=== PATIENT | male | born 1955 | race Caucasian/White ===

== ENCOUNTER 2017-05-19 12:53 | Emergency (ER) | payer BC ==
[2017-05-19 13:00] VITALS: BMI 23.3
[2017-05-19] MEDS ORDERED: ASPIRIN 325 MG TABLET PO ONE (13:48)
--- NOTE | 2017-05-19 13:48 | PDOC ---
History of Present Illness - General Chief Complaint: Chest Pain Stated Complaint: CHEST PAIN (PCP SENT)/hx of p.e Time Seen by Provider: 05/19/17 13:29 History Source: Patient - History of Present Illness Presenting Symptoms: Chest Pain Timing/Duration: reports: intermittent Severity/Quality: reports: pressure Location: reports: substernal Chest Pain Radiation: reports: no radiation Modifying Factors: worse with: breathing, lying down Past History - Past Medical History Allergies/Adverse Reactions: Allergies Allergy/AdvReac Type Severity Reaction Status Date / Time No Known Allergies Allergy Verified 05/19/17 12:55 Home Medications: Ambulatory Orders Brimonidine Tartrate/Timolol [Combigan 0.2%-0.5% Eye Drops] 5 ml OS BID Cetirizine HCl [Zyrtec] 10 mg PO DAILY 02/16/14 Cyclosporine [Restasis] 1 each OS BID 02/16/14 Esomeprazole Mag Trihydrate [Nexium] 40 mg PO DAILY 02/16/14 Levothyroxine [Synthroid -] 150 mcg PO DAILY 02/16/14 Mometasone Furoate [Nasonex] 1 - 2 inh NS DAILY 02/16/14 Asthma: No (P.E) Cancer: Yes (NON HODGKINS LYMPHOMA) - Psycho/Social/Smoking Cessation Hx Anxiety: No Suicidal Ideation: No Smoking History: Never smoked Have you smoked in the past 12 months: No Number of Cigarettes Smoked Daily: 0 Information on smoking cessation initiated: No Hx Alcohol Use: No Drug/Substance Use Hx: No Substance Use Type: None Review of Systems - Review of Systems Constitutional: No: Chills, Fever Respiratory: No: Cough, Shortness of Breath Cardiac (ROS): Yes: Chest Pain. No: Lightheadedness, Palpitations *Physical Exam - Vital Signs Last Vital Signs Temp Pulse Resp BP Pulse Ox 97.8 F 78 16 111/67 97 05/19/17 12:56 05/19/17 13:15 05/19/17 13:15 05/19/17 13:15 05/19/17 13:15 - Physical Exam General Appearance: Yes: Appropriately Dressed. No: Apparent Distress HEENT: positive: Normal Voice Neck: positive: Supple Respiratory/Chest: positive: Lungs Clear, Normal Breath Sounds. negative: Respiratory Distress Cardiovascular: positive: Regular Rate, S1, S2 Gastrointestinal/Abdominal: positive: Soft. negative: Tender Extremity: positive: Swelling (diffusely to LLE w/ contusion to lateral L leg, pedal pulses intact) Integumentary: positive: Dry, Warm Neurologic: positive: Fully Oriented, Alert, Normal Mood/Affect Heart Score/ECG Review - History History: Slightly suspicious - Electrocardiogram EKG: Normal - Age Age: 45-65 - Risk Factors Based on the list above the patient has:: No risk factors known - Troponin Troponin: </= normal limit - Score Heart Score - Total: 1 - ECG Intrepretation Comment:: 05/19/17 14:56 Twelve-lead EKG was performed and reviewed by me. There is normal sinus rhythm with a normal rate. The axis is normal. The intervals are normal. There are no ST or T wave abnormalities. Impression: Normal twelve-lead EKG 05/19/17 16:04 ED Treatment Course - LABORATORY CBC & Chemistry Diagram: 05/19/17 13:40 05/19/17 13:40 - ADDITIONAL ORDERS Additional order review: Laboratory Results 05/19/17 05/19/17 13:40 13:40 Sodium 141 Potassium 4.1 Chloride 108 H Carbon Dioxide 23 Anion Gap 10 BUN 23 H D Creatinine 1.2 Creat Clearance w eGFR > 60 Random Glucose 98 Calcium 8.3 L Total Bilirubin 0.7 D AST 17 ALT 24 D Alkaline Phosphatase 71 D Creatine Kinase 175 Creatine Kinase Index 2.4 CK-MB (CK-2) 2.832 CK-MB (CK-2) Rel Index Cancelled Troponin I < 0.02 Total Protein 7.0 Albumin 3.7 D 05/19/17 13:40 RBC 4.12 MCV 93.6 MCHC 34.1 RDW 13.4 D MPV 7.1 L Neutrophils % 56.6 Lymphocytes % 32.6 Monocytes % 8.3 Eosinophils % 1.8 Basophils % 0.7 - RADIOLOGY Radiology Studies Ordered: Category Date Time Status CHEST CTA [CT] Stat CT Scan 05/19/17 14:50 Completed CHEST X-RAY PORTABLE* [RAD] Stat Radiology 05/19/17 13:34 Completed DUPLEX VASCUL US-1 LEG [US] Stat Ultrasound 05/19/17 13:35 Completed - Medications Given in the ED: ED Medications Discontinued Medications Generic Name Dose Route Start Last Admin Trade Name Freq PRN Reason Stop Dose Admin Aspirin 325 mg 05/19/17 13:48 05/19/17 13:53 Asa - PO 05/19/17 13:49 325 mg ONCE ONE Administration Medical Decision Making - Medical Decision Making 05/19/17 13:43 61-year-old male history of hypothyroid, GERD, status post chemotherapy for Hodgkin's lymphoma over 20 years ago, PE after L knee surgery, not currently on AC, presents with chest pain. Patient reports pressure-like, non-radiating substernal chest pain that started yesterday, worse when supine and w/ deep inspiration, better when sitting up. Denies shortness of breath otherwise and no diaphoresis, nausea, vomiting or palpitations. Patient reports that he recently traveled from [place] and that while he was there, he tripped and fell and since then has had pain and swelling to LLE. No recent cardiac w/u. No recent uri See exam Pleuritic CP R/o ACS vs PE (multiple RF) vs pericarditis, less likely dissection -EKG -CXR -US r/o DVT -?CTA -labs 05/19/17 13:47 05/19/17 16:03 Labx/US/CTA all normal. Pt asymptomatic at this time. Given duration of CP, will only need 1 set cardiac enzyme. Will discuss dispo w/ pt's cards, Dr Smart 05/19/17 16:39 Case d/w Dr Lunsford (covering Scar Smart), agrees with discharging pt to f/u with his order clerk 05/19/17 16:49 *DC/Admit/Observation/Transfer Diagnosis at time of Disposition: Chest pain Qualifiers: Chest pain type: unspecified Qualified Code(s): R07.9 - Chest pain, unspecified - Discharge Dispostion Disposition: HOME - Referrals Referrals: James Kearney MD [Primary Care Provider] - - Patient Instructions Printed Discharge Instructions: DI for Atypical Chest Pain Additional Instructions: Please follow up with your order clerk in 1 week Return to ED for worsening of symptoms
[2017-05-19 13:51] LABS: BASOPHIL 0.7 % (0-2.0); EOSINOPHIL 1.8 % (0-4.5); MCH 31.9 pg (25.7-33.7); MCHC 34.1 g/dl (32.0-35.9); MEAN CELL VOLUME 93.6 fl (80-96); MEAN PLT VOLUME 7.1 fl (7.5-11.1); NEUTROPHILS 56.6 % (42.8-82.8); PLATELET COUNT 193 K/MM3 (134-434); RDW 13.4 % (11.9-15.9); WHITE BLOOD COUNT 6.9 K/mm3 (4.0-10.0)
[2017-05-19] MEDS ORDERED: ASPIRIN 325 MG TABLET ONE (13:51)
[2017-05-19 14:15] LABS: ALBUMIN 3.7 g/dl (3.4-5.0); ANION GAP 10 (8-16); CALCIUM 8.3 mg/dL (8.5-10.1); CO2 23 mmol/L (21-32); GLUCOSE,RANDOM 98 mg/dL (74-106)
[2017-05-19 14:18] LABS: CREATININE 1.2 mg/dL (0.7-1.3); SGOT/AST 17 U/L (15-37); SGPT/ALT 24 U/L (12-78)
[2017-05-19 14:19] LABS: BILIRUBIN,TOTAL 0.7 mg/dL (0.2-1.0)
[2017-05-19 14:22] LABS: ALK PHOS 71 U/L (45-117); TROPONIN I < 0.02 ng/ml (0.00-0.05)
[2017-05-19 16:54] VITALS: BP 116/69; PULSE 83; TEMP 97.7
[2017-05-19 18:01] LABS: URINE APPEARANCE CLEAR; URINE BILIRUBIN NEGATIVE (NEGATIVE); URINE BLOOD NEGATIVE (NEGATIVE); URINE COLOR YELLOW; URINE GLUCOSE (UA) NEGATIVE (NEGATIVE); URINE KETONE NEGATIVE (NEGATIVE); URINE LEUK ESTERASE NEGATIVE (NEGATIVE); URINE NITRITE NEGATIVE (NEGATIVE); URINE PROTEIN NEGATIVE (NEGATIVE); URINE UROBILINOGEN NEGATIVE E.U./dl (0.2-1.0)
--- NOTE | 2017-05-20 14:48 | EKG ---
Test Reason : Blood Pressure : / mmHG Vent. Rate : 079 BPM Atrial Rate : 079 BPM P-R Int : 194 ms QRS Dur : 096 ms QT Int : 390 ms P-R-T Axes : -07 -12 029 degrees QTc Int : 447 ms BASELINE ARTIFACTS NORMAL SINUS RHYTHM EARLY TRANSITIONIN V2 NORMAL ECG WHEN COMPARED WITH ECG OF 21-DEC-2008 16:49, VENT. RATE HAS INCREASED BY 28 BPM RSR 'IN V1 CORELATE CLINICALLY Confirmed by MARY GARNER MD ([id number]) on 05/20/2017 2:48:13 PM Referred By: Confirmed By:MARY GARNER MD
== END 2017-05-19 17:10 | disposition home or self-care (01) ==
LOC: JER 12:53
DX: R07.89 Other chest pain (principal); M79.605 Pain in left leg; W01.0XXA Fall on same level from slipping, tripping and stumbling without subsequent striking against object, initial encounter; Y93.89 Activity, other specified; Y92.89 Other specified places as the place of occurrence of the external cause; E03.9 Hypothyroidism, unspecified; K21.9 Gastro-esophageal reflux disease without esophagitis; Z85.72 Personal history of non-Hodgkin lymphomas
CPT/HCPCS: 36415; 71010-TC; 71275-TC; 80053; 81003; 82550; 82553; 84484; 85025; 93005; 93010; 93971-TC; 99285-25

== ENCOUNTER 2018-10-11 14:56 | Emergency (ER) | payer BC ==
[2018-10-11 15:22] VITALS: BP 97/55; PULSE 75; TEMP 98.6; BMI 24.5
--- NOTE | 2018-10-11 15:45 | PDOC ---
History of Present Illness - General Chief Complaint: Respiratory Stated Complaint: SENT BY PCP FOR CT Time Seen by Provider: 10/11/18 15:20 - History of Present Illness Initial Comments: 10/11/18 15:38 The patient is a 62 year old male with a past medical history of Hodgkins lymphoma s/p stem cell txplant (in remission for 18 years) here today for evaluation of cough. The patient reports that his cough has been going on for 6 weeks. He endorses clear sputum. Denies hemoptysis. Denies F/C. Denies CP/SOB. He also notes unintentional weight loss of 12 lbs since May. Denies nausea, diarrhea, abdominal pain. Denies lower extremity edema. Denies urinary symptoms Pt had outpt CXR done 1 month ago that was normal. Pt was prescribed a course of augmentin and prednisone, which he completed with no improvement in symptoms. Allergies: NKA Social history: denies tobacco use PCP: James Kearney Past History - Past Medical History Allergies/Adverse Reactions: Allergies Allergy/AdvReac Type Severity Reaction Status Date / Time No Known Allergies Allergy Verified 10/11/18 15:15 Home Medications: Ambulatory Orders Esomeprazole Mag Trihydrate [Nexium] 40 mg PO DAILY 02/16/14 Levothyroxine [Synthroid -] 150 mcg PO DAILY 02/16/14 Prednisolone Acetate/Pf [Prednisolone Acet 1% Eye Drop] 5 ml OP ASDIR 10/11/18 Asthma: No (P.E) Cancer: Yes (NON HODGKINS LYMPHOMA) - Suicide/Smoking/Psychosocial Hx Smoking History: Never smoked Have you smoked in the past 12 months: No Number of Cigarettes Smoked Daily: 0 Hx Alcohol Use: No Drug/Substance Use Hx: No Substance Use Type: None Review of Systems - Review of Systems Comments:: 10/11/18 15:45 GENERAL/CONSTITUTIONAL: No fever or chills. No weakness. HEAD, EYES, EARS, NOSE AND THROAT: No change in vision. No ear pain or discharge. No sore throat. CARDIOVASCULAR: No chest pain, no shortness of breath, no loss of consciousness RESPIRATORY: + cough, no wheezing, or hemoptysis. GASTROINTESTINAL: No nausea, vomiting, diarrhea or constipation. GENITOURINARY: No dysuria, frequency, or change in urination. MUSCULOSKELETAL: No joint or muscle swelling or pain. No neck or back pain. SKIN: No rash NEUROLOGIC: No vertigo, no change in strength/sensation. ENDOCRINE: No increased thirst. No abnormal weight change. HEMATOLOGIC/LYMPHATIC: No anemia, easy bleeding, or history of blood clots. ALLERGIC/IMMUNOLOGIC: No hives or skin allergy. *Physical Exam - Vital Signs Last Vital Signs Temp Pulse Resp BP Pulse Ox 98.6 F 75 18 97/55 L 97 10/11/18 15:20 10/11/18 15:20 10/11/18 15:20 10/11/18 15:20 10/11/18 15:20 - Physical Exam Comments: 10/11/18 15:45 "GENERAL: Awake, alert, and fully oriented, in no acute distress. HEAD: No signs of trauma EYES: PERRLA, EOMI, sclera anicteric, conjunctiva clear ENT: Auricles normal inspection, hearing grossly normal, nares patent, oropharynx clear without exudates. Moist mucosa NECK: Nontender, no stepoffs, Normal ROM, supple, no lymphadenopathy, JVD, or masses LUNGS: Breath sounds equal, clear to auscultation bilaterally. No wheezes, and no crackles HEART: Regular rate and rhythm, normal S1 and S2, no murmurs, rubs or gallops ABDOMEN: Soft, nontender, normoactive bowel sounds. No guarding, no rebound. No masses EXTREMITIES: Normal range of motion, no edema. No clubbing or cyanosis. No cords, erythema, or tenderness NEUROLOGICAL: Cranial nerves II through XII intact. 5/5 strength and sensation in all extremities, Normal speech, normal gait, normal cerebellar function SKIN: Warm, Dry, normal turgor, no rashes or lesions noted." ED Treatment Course - LABORATORY CBC & Chemistry Diagram: 10/11/18 15:52 10/11/18 15:52 - RADIOLOGY Radiology Studies Ordered: Category Date Time Status ABDOMEN & PELVIS CT WITH CONTR [CT] Stat CT Scan 10/11/18 15:[address] WITH CONTRAST [CT] Stat CT Scan 10/11/18 15:28 Ordered Medical Decision Making - Medical Decision Making 10/11/18 15:45 62 M with h/o hodgkin's lymphoma presenting with cough x 6 weeks and unintentional 12 lb weight loss. Pt with no fevers or other signs of infectious process on exam. Does not clinically appear volume overloaded and has no cardiac history. XR obtained last month with no acute findings. Will evaluate for malignancy. - Labs, trop, BNP - CT chest/abd/pelv with IV contrast 10/11/18 19:[address] shows no evidence of malignancy Fibrotic changes noted Pt reassessed - reports significant improvement in cough with codeine. I offered pt admission to hospital for pulm evaluation and continued monitoring , but pt refused. Pt is well appearing, with normal vitals. Clinically stable for DC at this time. I discussed the physical exam findings, ancillary test results and final diagnoses with the patient. I answered all of the patient's questions. The patient was satisfied with the care received and felt comfortable with the discharge plan and treatment plan. The patient agrees to follow up with the primary care physician within 24-72 hours. *DC/Admit/Observation/Transfer Diagnosis at time of Disposition: Cough - Discharge Dispostion Disposition: HOME - Referrals Referrals: James Kearney MD [Primary Care Provider] - - Patient Instructions Printed Discharge Instructions: DI for Acute Bronchitis Additional Instructions: Take the codeine as needed for cough. Do not use more than prescribed. If you experience worsening cough, chest pain, shortness of breath, blood in your sputum, fever, or any other concerning symptoms, return to the ER immediately. Otherwise, follow up with your it security consultant within 1 week for further evaluation. - Post Discharge Activity - Attestations Physician Attestion: 10/11/18 19:02 I, Dr. Keyur Kruger MD, attest that this document has been prepared under my direction and personally reviewed by me in its entirety. I further attest, that it accurately reflects all work, treatment, procedures and medical decision -making performed by me.
[2018-10-11] MEDS ORDERED: CODEINE SO4 30 MG TABLET PO ONE (16:12)
[2018-10-11 16:14] LABS: BASO % 0.7 % (0-2.0); HEMATOCRIT 40.7 % (35.4-49); HEMOGLOBIN 14.2 GM/dL (11.7-16.9); LYMPH % 33.5 % (8-40); MCH 31.9 pg (25.7-33.7); MCHC 34.8 g/dl (32.0-35.9); MEAN CELL VOLUME 91.6 fl (80-96); MEAN PLT VOLUME 7.7 fl (7.5-11.1); MONO % 7.6 % (3.8-10.2); NEUT % 55.2 % (42.8-82.8); PLATELET COUNT 219 K/MM3 (134-434); RBC 4.44 M/mm3 (4.00-5.60); RDW 13.8 % (11.9-15.9); WHITE BLOOD COUNT 8.8 K/mm3 (4.0-10.0)
[2018-10-11] MEDS ORDERED: CODEINE SO4 30 MG TABLET ONE (16:17)
[2018-10-11 16:25] LABS: VENOUS PC02 46.6 mmHg (38-52); VENOUS PH 7.36 (7.32-7.42)
[2018-10-11 16:41] LABS: ALBUMIN 3.4 g/dl (3.4-5.0); ALK PHOS 84 U/L (45-117); ANION GAP 10 MMOL/L (8-16); BILIRUBIN,TOTAL 0.4 mg/dL (0.2-1); BLOOD UREA NITROGEN 23 mg/dL (7-18); CALCIUM 8.7 mg/dL (8.5-10.1); CHLORIDE 108 mmol/L (98-107); CO2 25 mmol/L (21-32); CREATININE 1.3 mg/dL (0.55-1.3); GLUCOSE,RANDOM 84 mg/dL (74-106); POTASSIUM 4.3 mmol/L (3.5-5.1); SGOT/AST 17 U/L (15-37); SGPT/ALT 27 U/L (13-61); SODIUM 142 mmol/L (136-145)
[2018-10-11 16:44] LABS: MAGNESIUM 2.5 mg/dL (1.8-2.4)
--- NOTE | 2018-10-12 10:56 | EKG ---
Test Reason : Blood Pressure : / mmHG Vent. Rate : 059 BPM Atrial Rate : 059 BPM P-R Int : 224 ms QRS Dur : 110 ms QT Int : 432 ms P-R-T Axes : 074 -17 007 degrees QTc Int : 427 ms SINUS BRADYCARDIA WITH 1ST DEGREE A-V BLOCK OTHERWISE NORMAL ECG WHEN COMPARED WITH ECG OF 19-MAY-2017 13:07, MO INTERVAL HAS INCREASED Confirmed by MADYSON NICHOLE MD ([id number]) on 10/12/2018 10:56:37 AM Referred By: Confirmed By:MADYSON NICHOLE MD
== END 2018-10-11 19:14 | disposition home or self-care (01) ==
LOC: JER 14:56
DX: R05 Cough (principal); Z85.71 Personal history of Hodgkin lymphoma; Z94.84 Stem cells transplant status
CPT/HCPCS: 36415; 71260-TC; 74177-TC; 80053; 82550; 82803; 83735; 83880; 84100; 84484; 85025; 87040; 93005; 93010; 99282-25

== ENCOUNTER 2018-10-25 13:17 | Emergency (ER) | payer BC ==
[2018-10-25 13:46] VITALS: BP 106/67; PULSE 77; TEMP 97.8; BMI 23.3
--- NOTE | 2018-10-25 14:24 | PDOC ---
History of Present Illness - General Chief Complaint: Injury Stated Complaint: FALL Time Seen by Provider: 10/25/18 14:04 History Source: Patient Exam Limitations: No Limitations Past History - Past Medical History Allergies/Adverse Reactions: Allergies Allergy/AdvReac Type Severity Reaction Status Date / Time No Known Allergies Allergy Verified 10/25/18 13:46 Home Medications: Ambulatory Orders Esomeprazole Mag Trihydrate [Nexium] 40 mg PO DAILY 02/16/14 Levothyroxine [Synthroid -] 150 mcg PO DAILY 02/16/14 Prednisolone Acetate/Pf [Prednisolone Acet 1% Eye Drop] 5 ml OP ASDIR 10/11/18 Asthma: No (P.E) Cancer: Yes (NON HODGKINS LYMPHOMA) COPD: No - Suicide/Smoking/Psychosocial Hx Smoking History: Never smoked Have you smoked in the past 12 months: No Number of Cigarettes Smoked Daily: 0 Information on smoking cessation initiated: No Hx Alcohol Use: No Drug/Substance Use Hx: No Substance Use Type: None *Physical Exam - Vital Signs Last Vital Signs Temp Pulse Resp BP Pulse Ox 97.8 F 77 16 106/67 100 10/25/18 13:44 10/25/18 13:44 10/25/18 13:44 10/25/18 13:44 10/25/18 13:44 - Physical Exam HEENT: positive: EOMI, RIVAS, Other (No pain on eye movement, no infraorbital anesthesia, no enophthalmos or exophthalmos noted; no diplopia; healed superficial abrasion to lateral surface of L eyebrow) Neck: positive: Supple. negative: Decreased range of motion, Rigidity, Tender lateral, Tender midline Respiratory/Chest: positive: Lungs Clear, Normal Breath Sounds. negative: Respiratory Distress Cardiovascular: positive: Regular Rhythm, Regular Rate, S1, S2. negative: Murmur Gastrointestinal/Abdominal: positive: Normal Bowel Sounds, Soft. negative: Tender, Distended, Guarding, Rebound Neurologic: positive: valet parking attendant II-XII NML intact, Fully Oriented, Alert, Normal Mood/ Affect, Normal Response, Motor Strength 5/5. negative: Facial Droop, Numbness, Sensory Deficit, Confused, Disoriented Moderate Sedation - Procedure Monitoring Vital Signs: Procedure Monitoring Vital Signs Temperature 97.8 F 10/25/18 13:44 Pulse Rate 77 10/25/18 13:44 Respiratory Rate 16 10/25/18 13:44 Blood Pressure 106/67 10/25/18 13:44 O2 Sat by Pulse Oximetry (%) 100 10/25/18 13:44 Medical Decision Making - Medical Decision Making 62 y/o M hx of Hodgkin's lymphoma s/p stem cell transplant (in remission 18 years) presents after tripping over object in [employer] a few hours ago, falling face forward, ending up with cut along lateral surface of L eyebrow. Unsure of last tetanus. Denies LOC, headache, neck pain, numbess/tingling/ weakness of extremities, changes of vision, pain on eye movement, dizziness, sob , cp, n/v. PE unremarkable with healed abrasion along L eyebrow Patient with no focal deficits and no midline cspine tenderness Also not concerned for orbital fracture given unremarkable PE Tetanus updated Stable for d/c 10/25/18 14:21 *DC/Admit/Observation/Transfer Diagnosis at time of Disposition: Abrasion Fall Qualifiers: Encounter type: initial encounter Qualified Code(s): W19.XXXA - Unspecified fall, initial encounter - Discharge Dispostion Disposition: HOME Condition at time of disposition: Stable - Referrals Referrals: James Kearney MD [Primary Care Provider] - 3 days - Patient Instructions Additional Instructions: Thank you for choosing [facility]. It was a pleasure taking care of you. Return to the Emergency Department if your symptoms worsen or persist, you have double vision, pain on movement of eyes, changes in vision or walking, severe headache, neck pain, weakness of extremities, numbness/tingling or other concerning symptoms. - Post Discharge Activity
[2018-10-25] MEDS ORDERED: DIPHTH,PERTUSS(ACELL),TET 0.5 ML DISP.SYRIN IM ONE ×2 (14:25→14:28)
== END 2018-10-25 14:33 | disposition home or self-care (01) ==
LOC: JERFT 13:17
PROC: 3E0234Z Introduction of Serum, Toxoid and Vaccine into Muscle, Percutaneous Approach (ICD-10-PCS; principal; 2018-10-25)
DX: S00.212A Abrasion of left eyelid and periocular area, initial encounter (principal); W18.39XA Other fall on same level, initial encounter; Y93.89 Activity, other specified; Y92.512 Supermarket, store or market as the place of occurrence of the external cause; C81.10 Nodular sclerosis Hodgkin lymphoma, unspecified site; J45.909 Unspecified asthma, uncomplicated
CPT/HCPCS: 90715; 99281-25

== ENCOUNTER 2019-12-14 10:55 | Inpatient (IN) | payer BC ==
[2019-12-14 12:10] LABS: BASO % 0.3 % (0-2.0); EOS % 1.3 % (0-4.5); HEMATOCRIT 39.9 % (35.4-49); HEMOGLOBIN 13.4 GM/dL (11.7-16.9); LYMPH % 34.7 % (8-40); MCH 31.8 pg (25.7-33.7); MCHC 33.6 g/dl (32.0-35.9); MEAN CELL VOLUME 94.9 fl (80-96); MEAN PLT VOLUME 7.6 fl (7.5-11.1); NEUT % 55.7 % (42.8-82.8); PLATELET COUNT 187 K/MM3 (134-434); RBC 4.21 M/mm3 (4.00-5.60); RDW 12.9 % (11.9-15.9); WHITE BLOOD COUNT 6.7 K/mm3 (4.0-10.0)
[2019-12-14 12:37] LABS: ALBUMIN 3.2 g/dl (3.4-5.0); ALK PHOS 67 U/L (45-117); ANION GAP 8 MMOL/L (8-16); BILIRUBIN,TOTAL 0.4 mg/dL (0.2-1); CALCIUM 7.9 mg/dL (8.5-10.1); CHLORIDE 112 mmol/L (98-107); CO2 20 mmol/L (21-32); CREATININE 1.2 mg/dL (0.55-1.3); GLUCOSE,RANDOM 65 mg/dL (74-106); POTASSIUM 4.2 mmol/L (3.5-5.1); SGOT/AST 27 U/L (15-37); SGPT/ALT 26 U/L (13-61); SODIUM 140 mmol/L (136-145); TOT PROT 6.8 g/dl (6.4-8.2)
[2019-12-14 13:42] LABS: URINE APPEARANCE CLEAR; URINE BILIRUBIN NEGATIVE (NEGATIVE); URINE COLOR YELLOW; URINE GLUCOSE (UA) NEGATIVE (NEGATIVE); URINE KETONE NEGATIVE (NEGATIVE); URINE LEUK ESTERASE NEGATIVE (NEGATIVE); URINE NITRITE NEGATIVE (NEGATIVE); URINE PROTEIN NEGATIVE (NEGATIVE); URINE UROBILINOGEN 0.2 mg/dL (0.2-1.0)
--- NOTE | 2019-12-14 15:00 | PDOC ---
Documentation entered by Beto Godfrey SCRIBE, acting as scribe for Maria Victoria Botello MD. Maria Victoria Botello MD: This documentation has been prepared by the Epifanio murphy Daniel, SCRIBE, under my direction and personally reviewed by me in its entirety. I confirm that the documentation accurately reflects all work, treatment, procedures, and medical decision making performed by me. History of Present Illness - General Chief Complaint: Shortness of Breath Stated Complaint: SOB History Source: Patient Exam Limitations: No Limitations - History of Present Illness Initial Comments: 12/14/19 11:38 The patient is a 64 year old male with a past medical history of non Hodgkins Lymphoma s/p stem cell transplant (20yrs ago) and prior PE after knee surgery 4 years ago (completed course of AC) here today for evaluation of shortness of breath. The patient reports that he had 2 episodes of shortness of breath this morning around 8:30 while he was moving trays and furniture at work. The patient s son noticed the patients shortness of breath and became concerned so he called EMS. Patient notes that last week he was sick with diarrhea and also notes that for the past few months he has had difficulty swallowing. He reports that when he had his PE he noted associated chest pressure which he does not have now and denies this feeling like when he had the PE. He currently denies any shortness of breath at this time but notes some stomach queasiness. Patient was supposed to see his PCP today to have his thyroid level checked. He notes traveling to [facility] but that it was 4 months ago. Patient denies headache, lightheadedness. Denies fever, chills. Denies chest pain, palpitations. Denies nausea, vomiting, diarrhea, abdominal pain. Denies lower extremity edema. Allergies: NKA PCP: James Kearney Past History - Past Medical History Allergies/Adverse Reactions: Allergies Allergy/AdvReac Type Severity Reaction Status Date / Time No Known Allergies Allergy Verified 10/25/18 13:46 Home Medications: Ambulatory Orders Esomeprazole Mag Trihydrate [Nexium] 40 mg PO DAILY 02/16/14 Levothyroxine [Synthroid -] 150 mcg PO DAILY 02/16/14 Prednisolone Acetate/Pf [Prednisolone Acet 1% Eye Drop] 5 ml OP ASDIR 10/11/18 Asthma: No (P.E) Cancer: Yes (NON HODGKINS LYMPHOMA) COPD: No - Psycho Social/Smoking Cessation Hx Smoking History: Never smoked Have you smoked in the past 12 months: No Number of Cigarettes Smoked Daily: 0 Hx Alcohol Use: No Drug/Substance Use Hx: No Substance Use Type: None Review of Systems - Review of Systems Able to Perform ROS?: Yes Comments:: 12/14/19 11:38 GENERAL/CONSTITUTIONAL: No fever or chills. No weakness. HEAD, EYES, EARS, NOSE AND THROAT: No change in vision. No ear pain or discharge. No sore throat. GASTROINTESTINAL: +stomach queasiness. No nausea, vomiting, diarrhea or constipation. GENITOURINARY: No dysuria, frequency, or change in urination. CARDIOVASCULAR: No chest pain or shortness of breath. RESPIRATORY: +resolved shortness of breath. No cough, wheezing, or hemoptysis. MUSCULOSKELETAL: No joint or muscle swelling or pain. No neck or back pain. SKIN: No rash NEUROLOGIC: No headache, vertigo, loss of consciousness, or change in strength/ sensation. ENDOCRINE: No increased thirst. No abnormal weight change. HEMATOLOGIC/LYMPHATIC: No anemia, easy bleeding, or history of blood clots. ALLERGIC/IMMUNOLOGIC: No hives or skin allergy. *Physical Exam - Vital Signs Last Vital Signs Temp Pulse Resp BP Pulse Ox 97.4 F L 70 18 95/54 L 95 12/14/19 11:20 12/14/19 11:20 12/14/19 11:20 12/14/19 11:20 12/14/19 11:20 - Physical Exam 12/14/19 11:39 GENERAL: Awake, alert, and fully oriented, in no acute distress EYES: PERRLA, EOMI, sclera anicteric, conjunctiva clear ENT: Oropharynx clear without exudates. Moist mucosa NECK: Normal ROM, supple, no lymphadenopathy, JVD, or masses LUNGS: Breath sounds equal, clear to auscultation bilaterally. No wheezes, and no crackles HEART: Regular rate and rhythm, normal S1 and S2, no murmurs, rubs or gallops ABDOMEN: Soft, nontender, normoactive bowel sounds. No guarding, no rebound. No masses EXTREMITIES: Normal range of motion, no edema. No clubbing or cyanosis. No cords , erythema, or tenderness BACK: No midline spinal tenderness in cervical/thoracic/lumbar region NEUROLOGICAL: Normal speech, cranial nerves intact, equal strength and sensation b/l SKIN: Warm, Dry, normal turgor, no rashes or lesions noted. Heart Score/ECG Review - History History: Moderately suspicious - Electrocardiogram EKG: Non specific repolarization disturbance - Age Age: 45-65 - Risk Factors Based on the list above the patient has:: 1-2 risk factors - Troponin Troponin: </= normal limit - Score Heart Score - Total: 4 #1 12/14/19 14:57 Twelve-lead EKG was performed and reviewed by me. Sinus rhythm, rate 67. First -degree AV block. Occasional PVCs. No ST elevations. ED Treatment Course - LABORATORY CBC & Chemistry Diagram: 12/14/19 11:42 12/14/19 11:42 - RADIOLOGY Radiology Studies Ordered: Category Date Time Status CHEST X-RAY PORTABLE* [RAD] Stat Radiology 12/14/19 11:40 Ordered Medical Decision Making - Medical Decision Making 12/14/19 14:58 64-year-old male with a history of non-Hodgkin's lymphoma status post stem cell transplant, PE status post course of anticoagulation presents the emergency department with 2 episodes of exertional shortness of breath while at work today. Patient reports that shortness of breath resolved while he was at rest. Vitals with low blood pressure, however patient states his blood pressure is always on the lower side. On exam patient's lungs are clear, otherwise unremarkable Differential includes ACS versus PE versus CHF versus pneumonia Plan for cardiac monitoring, labs, chest x-ray, and likely telemetry obs admission 12/14/19 15:40 CTA with chronic lung disease Labs wnl Plan to admit for cardiac/pulm w/u Case discussed with FRANCISCO Valles pt accepted for admission Case discussed in detail with admitting physician including history, physical exam and ancillary studies. Admitting physician has assumed care for the patient, will follow all pending diagnostics and will complete the evaluation and treatment. Discharge - Discharge Information Problems reviewed: Yes Clinical Impression/Diagnosis: Shortness of breath Condition: Stable - Admission Yes - Follow up/Referral - Patient Discharge Instructions - Post Discharge Activity
--- NOTE | 2019-12-14 16:32 | HP ---
Admitting History and Physical - Primary Care Physician PCP: James Kearney - Admission Chief Complaint: Dyspnea on exertion History of Present Illness: Patient is a 64 y/o male with past medical history of Non-Hodgkin Lymphoma s/p stem cell transplant 20 yrs ago, PE 4 yrs ago after L knee surgery (completed course of AC). Patient presented to ER after developing dyspnea on exertion. Patient states that while at work today he developed dyspnea on exertion accompanied with feeling lightheaded when he was moving things around. He sat down and rest and states his symptoms resolved. When he started moving things around at work his symptoms began again. Denies chest pain or palpitations with dyspnea. History Source: Patient Limitations to Obtaining History: No Limitations - Past Medical History Pulmonary: Yes: Pulmonary Embolus Gastrointestinal: Yes: GERD Heme/Onc: Yes: Other (Non Hodgkin Lymphoma) Endocrine: Yes: Hypothyroidism - Past Surgical History Past Surgical History: Yes: Joint Replacement (L knee) - Smoking History Smoking history: Never smoked Have you smoked in the past 12 months: No Aproximately how many cigarettes per day: 0 - Alcohol/Substance Use Hx Alcohol Use: No - Social History Usual Living Arrangement: Yes: With Spouse ADL: Independent History of Recent Travel: No Home Medications - Allergies Allergies/Adverse Reactions: Allergies Allergy/AdvReac Type Severity Reaction Status Date / Time No Known Allergies Allergy Verified 10/25/18 13:46 - Home Medications Home Medications: Ambulatory Orders Esomeprazole Mag Trihydrate [Nexium] 40 mg PO DAILY 02/16/14 Levothyroxine [Synthroid -] 150 mcg PO DAILY 02/16/14 Prednisolone Acetate/Pf [Prednisolone Acet 1% Eye Drop] 5 ml OP ASDIR 10/11/18 Review of Systems - Review of Systems Constitutional: reports: Weakness Eyes: reports: No Symptoms HENT: reports: No Symptoms Neck: reports: No Symptoms Cardiovascular: reports: No Symptoms, Shortness of Breath Respiratory: reports: SOB on Exertion Gastrointestinal: reports: Dysphagia Genitourinary: reports: No Symptoms Breasts: reports: No Symptoms Reported Musculoskeletal: reports: No Symptoms Integumentary: reports: No Symptoms Neurological: reports: No Symptoms Endocrine: reports: No Symptoms Hematology/Lymphatic: reports: No Symptoms Psychiatric: reports: No Symptoms Physical Examination Vital Signs: Vital Signs Temperature 97.4 F L 12/14/19 11:20 Pulse Rate 66 12/14/19 16:16 Respiratory Rate 66 H 12/14/19 16:16 Blood Pressure 107/60 12/14/19 16:16 O2 Sat by Pulse Oximetry (%) 100 12/14/19 16:16 Constitutional: Yes: No Distress, Calm Eyes: Yes: Conjunctiva Clear HENT: Yes: Atraumatic Neck: Yes: Supple Cardiovascular: Yes: Regular Rate and Rhythm Respiratory: Yes: Regular, CTA Bilaterally Gastrointestinal: Yes: Normal Bowel Sounds, Soft Musculoskeletal: Yes: Muscle Weakness Extremities: Yes: WNL Edema: No Neurological: Yes: Alert, Oriented Psychiatric: Yes: Alert, Oriented Labs: CBC, BMP 12/14/19 11:42 12/14/19 11:42 Imaging - Results Chest X-ray: Report Reviewed Cat Scan: Report Reviewed Problem List - Problems (1) Hypothyroidism Assessment/Plan: -Levothyroxine -TSH and T4 pending Code(s): E03.9 - HYPOTHYROIDISM, UNSPECIFIED (2) History of pulmonary embolism Assessment/Plan: -completed course of AC -D-Dimer 709 -Chest CTA shows no pulmonary embolism, chronic lung disease with no acute pathology within the chest -Pulmonary Consult Code(s): Z86.711 - PERSONAL HISTORY OF PULMONARY EMBOLISM (3) Shortness of breath Assessment/Plan: -Pulmonary consult -Cardiology consult -Tele monitoring -D-Dimer 709 -Chest CTA shows no pulmonary embolism, chronic lung disease with no acute pathology within the chest -keep SpO2 >90% -O2 via NC -bronchodilators -troponin neg x 1 Code(s): R06.02 - SHORTNESS OF BREATH (4) Non-Hodgkin lymphoma in remission Assessment/Plan: -follow up with Oncology as scheduled Code(s): C85.90 - NON-HODGKIN LYMPHOMA, UNSPECIFIED, UNSPECIFIED SITE Assessment/Plan see problem list dvt ppx
[2019-12-14] MEDS ORDERED: ALBUTEROL SO4 0.083% IH SOL 2.5 MG/3 ML VIAL.NEB. NEB PRN (16:41)
[2019-12-14] MEDS: HEPARIN NA (PORCINE) 5,000 UNITS/ML 1ML VIAL SQ SCH (22:23)
[2019-12-15] MEDS ORDERED: PANTOPRAZOLE 40 MG TABLET PO ONE (00:04)
[2019-12-15] MEDS ORDERED: ALBUTEROL SO4 0.083% IH SOL 2.5 MG/3 ML VIAL.NEB. NEB PRN (00:11)
[2019-12-15 01:44] VITALS: BMI 22.4
[2019-12-15] MEDS ORDERED: LEVOTHYROXINE NA 150 MCG TABLET PO SCH (07:00)
[2019-12-15 07:05] LABS: BASO % 0.2 % (0-2.0); HEMATOCRIT 38.3 % (35.4-49); HEMOGLOBIN 12.9 GM/dL (11.7-16.9); LYMPH % 48.3 % (8-40); MCH 31.6 pg (25.7-33.7); MCHC 33.7 g/dl (32.0-35.9); MEAN CELL VOLUME 93.7 fl (80-96); MEAN PLT VOLUME 7.3 fl (7.5-11.1); MONO % 9.8 % (3.8-10.2); NEUT % 39.7 % (42.8-82.8); PLATELET COUNT 167 K/MM3 (134-434); RBC 4.09 M/mm3 (4.00-5.60); WHITE BLOOD COUNT 5.4 K/mm3 (4.0-10.0)
[2019-12-15 07:34] LABS: ALBUMIN 2.8 g/dl (3.4-5.0); ALK PHOS 58 U/L (45-117); ANION GAP 4 MMOL/L (8-16); BILIRUBIN,TOTAL 0.2 mg/dL (0.2-1); BLOOD UREA NITROGEN 22.3 mg/dL (7-18); CALCIUM 8.2 mg/dL (8.5-10.1); CHLORIDE 114 mmol/L (98-107); CHOLESTEROL 102 mg/dL (50-200); CO2 27 mmol/L (21-32); CREATININE 1.2 mg/dL (0.55-1.3); GLUCOSE,RANDOM 83 mg/dL (74-106); HDL CHOLESTEROL 23 mg/dL (40-60); LDL CHOLESTEROL (ONLY SJRH) 63 mg/dL (5-100); MAGNESIUM 2.3 mg/dL (1.8-2.4); POTASSIUM 4.3 mmol/L (3.5-5.1); SGOT/AST 18 U/L (15-37); SGPT/ALT 22 U/L (13-61); SODIUM 145 mmol/L (136-145); TOT PROT 6.1 g/dl (6.4-8.2); TRIGLYCERIDES 162 mg/dL (0-150)
--- NOTE | 2019-12-15 08:34 | PN ---
Progress Note, Physician - Current Medication List Current Medications: Active Medications Albuterol Sulfate (Ventolin 0.083% Nebulizer Soln -) 1 amp NEB RQID PRN PRN Reason: SHORT OF BREATH/WHEEZING Heparin Sodium (Porcine) (Heparin -) 5,000 unit SQ BID [facility] Last Admin: 12/14/19 22:23 Dose: 5,000 unit Levothyroxine Sodium (Synthroid -) 150 mcg PO DAILY@0700 [facility] Last Admin: 12/15/19 06:41 Dose: 150 mcg Pantoprazole Sodium (Protonix -) 40 mg PO DAILY [facility] - Objective Vital Signs: Vital Signs Temperature 97.4 F L 12/15/19 06:00 Pulse Rate 59 L 12/15/19 06:00 Respiratory Rate 20 12/15/19 06:00 Blood Pressure 95/50 L 12/15/19 06:00 O2 Sat by Pulse Oximetry (%) 95 12/14/19 22:00 Cardiovascular: Yes: S1, S2 Respiratory: Yes: Regular, CTA Bilaterally Gastrointestinal: Yes: Normal Bowel Sounds, Soft Edema: No Neurological: Yes: Alert, Oriented Labs: CBC, BMP 12/15/19 06:40 12/15/19 06:40 Problem List - Problems (1) Shortness of breath Assessment/Plan: -Patient states had a stress test 2 months ago and it was gen--get report -Pulmonary consult -Cardiology consult -Tele monitoring -D-Dimer 709 -Chest CTA shows no pulmonary embolism, chronic lung disease with no acute pathology within the chest -keep SpO2 >90% -O2 via NC -bronchodilators -troponin neg x 2 Code(s): R06.02 - SHORTNESS OF BREATH (2) History of pulmonary embolism Assessment/Plan: -completed course of AC -D-Dimer 709 -Chest CTA shows no pulmonary embolism, chronic lung disease with no acute pathology within the chest -Pulmonary Consult Code(s): Z86.711 - PERSONAL HISTORY OF PULMONARY EMBOLISM (3) Hypothyroidism Assessment/Plan: : -Levothyroxine -TSH and T4 pending Code(s): E03.9 - HYPOTHYROIDISM, UNSPECIFIED (4) Non-Hodgkin lymphoma in remission Assessment/Plan: -follow up with Oncology as scheduled Code(s): C85.90 - NON-HODGKIN LYMPHOMA, UNSPECIFIED, UNSPECIFIED SITE
[2019-12-15] MEDS: HEPARIN NA (PORCINE) 5,000 UNITS/ML 1ML VIAL SQ SCH (09:05)
--- NOTE | 2019-12-15 09:58 | CON.CARD ---
Consult Consult Specialty:: Cardiology Referred by:: Alejandro Ambriz MD Reason for Consultation:: AL - History of Present Illness Chief Complaint: AL History of Present Illness: 63 yo Non-Hodgkin Lymphoma s/p stem cell transplant 20 yrs ago, hypothyroidism, pulm embolism post knee surgery, corneal transplant and glaucoma OS, detached retina and cataracts OU, Prinzmetal variant angina, Raynauds last seen in office 06/22/2019 presented developing dyspnea on exertion. Patient states that while at work today he developed dyspnea on exertion accompanied with feeling lightheaded when he was moving things around. He sat down and rest and states his symptoms resolved. When he started moving things around at work his symptoms began again. Denies chest pain, palpitations, near or true syncope, orthopnea, PND or LE edema, reported diarrhea, GI upset last week since resolved. - History Source History Provided By: Patient Limitations to Obtaining History: No Limitations - Past Medical History Pulmonary: Yes: Pulmonary Embolus Gastrointestinal: Yes: GERD Endocrine: Yes: Hypothyroidism - Past Surgical History Past Surgical History: Yes: Joint Replacement (L knee) - Alcohol/Substance Use Hx Alcohol Use: No - Smoking History Smoking history: Never smoked Have you smoked in the past 12 months: No Aproximately how many cigarettes per day: 0 - Social History ADL: Independent History of Recent Travel: No Home Medications - Allergies Allergies/Adverse Reactions: Allergies Allergy/AdvReac Type Severity Reaction Status Date / Time bleomycin Allergy Verified 12/15/19 02:22 - Home Medications Home Medications: Ambulatory Orders Dexamethasone 0.1% Eye Drops - 1 drop OS DAILY 12/14/19 Diltiazem HCl [Diltiazem ER] 120 mg PO DAILY 12/14/19 Erythromycin 0.5% Eye Ointment [Erythromycin 0.5% Eye Ointment -] 1 applic OS DAILY 12/14/19 Escitalopram Oxalate [Lexapro -] 5 mg PO DAILY 12/14/19 Esomeprazole Magnesium [Nexium 24Hr] 40 mg PO DAILY 12/14/19 Levothyroxine [Synthroid -] 125 mcg PO DAILY 12/14/19 Timolol [Betimol] 1 drop OS BID 12/14/19 Valacyclovir HCl [Valtrex] 500 mg PO BID 12/14/19 Review of Systems - Review of Systems Cardiovascular: reports: Shortness of Breath Respiratory: reports: SOB on Exertion Neurological: reports: Dizziness Vital Signs: Vital Signs Temperature 97.4 F L 12/15/19 06:00 Pulse Rate 59 L 12/15/19 06:00 Respiratory Rate 12/15/19 06:00 Blood Pressure 95/50 L 12/15/19 06:00 O2 Sat by Pulse Oximetry (%) 95 12/14/19 22:00 Constitutional: Yes: No Distress, Calm Neck: Yes: Supple Respiratory: Yes: Regular, CTA Bilaterally Gastrointestinal: Yes: Normal Bowel Sounds, Soft Cardiovascular: Yes: Regular Rate and Rhythm JVD: No Carotid Bruit: No Heart Sounds: Yes: S1, S2 Murmur: Yes: Systolic Murmur, Grade 1 Edema: No - Other Data Labs, Other Data: CBC, BMP 12/15/19 06:40 12/15/19 06:40 Troponin, BNP 12/14/19 12/14/19 12/15/19 11:42 11:42 06:40 Troponin I < 0.02 < 0.02 B-Natriuretic Peptide 313.0 H Troponin, BNP 12/14/19 12/14/19 12/15/19 11:42 11:42 06:40 Troponin I < 0.02 < 0.02 B-Natriuretic Peptide 313.0 H NSR @ 67 LVH with PVC 1st deg AVB Echo: Report Reviewed Ejection Fraction %: LVEF > or = 40 % Imaging - Results Chest X-ray: Report Reviewed (NAD) Cat Scan: Report Reviewed (No PE, chronic lung disease) Ultrasound: Report Reviewed (No DVT bilaterally) Problem List - Problems (1) Premature ventricular contraction Code(s): I49.3 - VENTRICULAR PREMATURE DEPOLARIZATION (2) Prinzmetal variant angina Code(s): I20.1 - ANGINA PECTORIS WITH DOCUMENTED SPASM (3) History of pulmonary embolism Code(s): Z86.711 - PERSONAL HISTORY OF PULMONARY EMBOLISM (4) Hypothyroidism Code(s): E03.9 - HYPOTHYROIDISM, UNSPECIFIED Qualifiers: Hypothyroidism type: unspecified Qualified Code(s): E03.9 - Hypothyroidism , unspecified (5) Non-Hodgkin lymphoma in remission Code(s): C85.90 - NON-HODGKIN LYMPHOMA, UNSPECIFIED, UNSPECIFIED SITE (6) Shortness of breath Code(s): R06.02 - SHORTNESS OF BREATH (7) Raynaud phenomenon Code(s): I73.00 - RAYNAUD'S SYNDROME WITHOUT GANGRENE Qualifiers: Raynaud?s-associated gangrene presence: without gangrene Qualified Code(s) : I73.00 - Raynaud's syndrome without gangrene Assessment/Plan 04/26/2018 Normal LV and RV size and fxn, LVEF 55%, mild MR, TR 05/19/2018 ETT-Myoview: No ischemia post maximal stress testing, mildly decreased LVEF 47-48% 12/14/2019 Chest CTA: No PE, +chronic lung disease 1. AL, ruled out acute PE 2. Prinzmetal variant angina, Raynaud's phenomenon 3. H/o provoked PE post knee surgery post course of AC 4. Hypothyroidism 5. NHL in remission 6. PVC P:1. Ruled out for CA, recheck echocardiogram, monitor telemetry to assess arrhythmia burden 2. Trial of BD, O2 as needed 3. Resume Cardizem CD 120 qd as hemodynamics tolerate 4. DVT and GI prophylaxis 5. Thank you for consultative opportunity
[2019-12-15] MEDS ORDERED: PANTOPRAZOLE 40 MG TABLET PO SCH ×2 (10:00)
--- NOTE | 2019-12-15 11:22 | EKG ---
Test Reason : Blood Pressure : / mmHG Vent. Rate : 067 BPM Atrial Rate : 067 BPM P-R Int : 226 ms QRS Dur : 122 ms QT Int : 434 ms P-R-T Axes : -18 -16 013 degrees QTc Int : 458 ms SINUS RHYTHM WITH 1ST DEGREE A-V BLOCK WITH OCCASIONAL PREMATURE VENTRICULAR COMPLEXES LEFT VENTRICULAR HYPERTROPHY WITH QRS WIDENING ABNORMAL ECG WHEN COMPARED WITH ECG OF 11-OCT-2018 15:38, PREMATURE VENTRICULAR COMPLEXES ARE NOW PRESENT Confirmed by Nilson Decker MD ([id number]) on 12/15/2019 11:22:24 AM Referred By: Confirmed By:Nilson Decker MD
[2019-12-15 13:36] VITALS: BP 113/50; PULSE 62; TEMP 97.2
--- NOTE | 2019-12-15 14:15 | CON.PULM ---
Consult Consult Specialty:: PULMONARY Referred by:: Dr Kearney Reason for Consultation:: shortness of breath - History of Present Illness Chief Complaint: shortness of breath History of Present Illness: 64yo male with h/o non-Hodgkin's Lymphoma s/p stem cell transplant, chemo, radiation therapy, h/o provoked PE after knee surgery who was admitted with shortness of breath on exertion x 1 day. Denies chest pain or palpitations. No fevers, chills or sweats. Reports a nonproductive cough without wheezing. States that he has been experiencing URI symptoms for the past 2 weeks. Denies history of asthma or COPD. He is a never smoker, works in restaurants. - History Source History Provided By: Patient, Significant Other, Medical Record Limitations to Obtaining History: No Limitations - Past Medical History Pulmonary: Yes: Pulmonary Embolus Gastrointestinal: Yes: GERD Endocrine: Yes: Hypothyroidism - Past Surgical History Past Surgical History: Yes: Joint Replacement (L knee) - Alcohol/Substance Use Hx Alcohol Use: No - Smoking History Smoking history: Never smoked Have you smoked in the past 12 months: No Aproximately how many cigarettes per day: 0 - Social History ADL: Independent History of Recent Travel: No Home Medications - Allergies Allergies/Adverse Reactions: Allergies Allergy/AdvReac Type Severity Reaction Status Date / Time bleomycin Allergy Verified 12/15/19 02:22 - Home Medications Home Medications: Ambulatory Orders Dexamethasone 0.1% Eye Drops - 1 drop OS DAILY 12/14/19 Diltiazem HCl [Diltiazem ER] 120 mg PO DAILY 12/14/19 Erythromycin 0.5% Eye Ointment [Erythromycin 0.5% Eye Ointment -] 1 applic OS DAILY 12/14/19 Escitalopram Oxalate [Lexapro -] 5 mg PO DAILY 12/14/19 Esomeprazole Magnesium [Nexium 24Hr] 40 mg PO DAILY 12/14/19 Levothyroxine [Synthroid -] 125 mcg PO DAILY 12/14/19 Timolol [Betimol] 1 drop OS BID 12/14/19 Valacyclovir HCl [Valtrex] 500 mg PO BID 12/14/19 Review of Systems - Review of Systems Constitutional: denies: Chills, Fever Eyes: denies: Recent Change in Vision HENT: reports: Nasal Congestion, Throat Pain Neck: denies: Stiffness, Tenderness Cardiovascular: reports: Shortness of Breath. denies: Chest Pain, Edema Respiratory: reports: Cough, SOB on Exertion. denies: Hemoptysis, Wheezing Gastrointestinal: denies: Abdominal Pain, Nausea, Vomiting Genitourinary: denies: Dysuria, Hematuria Neurological: denies: Dizziness, Headache Endocrine: denies: Unexplained Weight Loss Physical Exam Vital Sings: Vital Signs Temperature 97.2 F L 12/15/19 13:35 Pulse Rate 62 12/15/19 13:35 Respiratory Rate 16 12/15/19 13:35 Blood Pressure 113/50 L 12/15/19 13:35 O2 Sat by Pulse Oximetry (%) 95 12/15/19 09:00 Constitutional: Yes: Calm Eyes: Yes: Conjunctiva Clear, EOM Intact HENT: Yes: Atraumatic, Normocephalic, Nasal Congestion, Rhinnorhea Neck: Yes: Supple, Trachea Midline Cardiovascular: Yes: Regular Rate and Rhythm Respiratory: Yes: Diminished (decreased breath sounds at the bases) ...Clubbing: No Gastrointestinal: Yes: Normal Bowel Sounds, Soft. No: Tenderness Edema: No Neurological: Yes: Alert, Oriented Labs: CBC, BMP 12/15/19 06:40 12/15/19 06:40 Imaging - Results Chest X-ray: Report Reviewed, Image Reviewed Cat Scan: Report Reviewed, Image Reviewed (changes c/w radiation fibrosis) Assessment/Plan Dyspnea on Exertion Cough likely Post Nasal Drip h/o Prinzmetal Angina h/o Provoked PE h/o Non-Hodgkin's Lymphoma Hypothyroidism - start nasal steroids - antihistamines - chest imaging consistent with radiation pneumonitis - outpt PFTs - no planned inpatient work up at this time - echocardiogram - DVT prophylaxis Thank you for this consult Neeraj Gan MD
[2019-12-15] MEDS ORDERED: LORATADINE 10 MG TABLET PO SCH (14:30)
--- NOTE | 2019-12-15 15:45 | ECHO ---
Name: WILMAN SMITH Exam:Adult Echocardiogram Study Date: 12/15/2019 01:46 PM Age: 64 yrs Reason For Study: gardner Height: 69 in Weight: 151 lb BSA: 1.8 m2 MMode/2D Measurements & Calculations IVSd: 0.98 cm Ao root diam: 2.9 cm LVIDd: 4.4 cm LA dimension: 3.0 cm LVIDs: 3.4 cm LVPWd: 0.86 cm LVPWs: 1.3 cm EDV(Teich): 87.2 ml ESV(Teich): 48.1 ml LVOT diam: 2.5 cm LAV (MOD-bp): 69.0 ml RV S Tyler: 11.4 cm/sec Doppler Measurements & Calculations MV E max tyler: 47.4 cm/sec Ao V2 max: 90.8 cm/sec MV A max tyler: 63.7 cm/sec Ao max P.3 mmHg MV E/A: 0.74 JENNIFER(V,D): 3.3 cm2 MV dec time: 0.18 sec LV V1 max P.5 mmHg TR max tyler: 200.9 cm/sec LV V1 max: 61.7 cm/sec TR max P.1 mmHg PA V2 max: 64.3 cm/sec Med Peak E' Tyler: 6.9 cm/sec PA max P.7 mmHg Med E/e': 6.9 Lat Peak E' Tyler: 8.7 cm/sec Lat E/e': 5.5 Procedure A two-dimensional transthoracic echocardiogram with color flow and Doppler was performed. Left Ventricle The left ventricle is grossly normal size. Ejection Fraction = 40-45%. Left ventricular systolic func tion is moderately reduced. There is moderate global hypokinesis of the left ventricle. Right Ventricle The right ventricle is not well visualized. Atria Normal left and right atrial size and function. Mitral Valve There is no mitral valve stenosis. There is moderate to severe mitral regurgitation. Tricuspid Valve There is mild tricuspid valve thickening. There is no tricuspid stenosis. There is Trace to mild tric uspid regurgitation. Right ventricular systolic pressure is normal. Aortic Valve The aortic valve is normal in structure and function. No hemodynamically significant valvular aortic stenosis. No aortic regurgitation is present. Pulmonic Valve The pulmonic valve is not well visualized. Great Vessels The aortic root is normal size. Pericardium/Pleura There is no pericardial effusion. Interpretation Summary The left ventricle is grossly normal size. There is moderate to severe mitral regurgitation. Ejection Fraction = 40-45%. Left ventricular systolic function is moderately reduced. There is moderate global hypokinesis of the left ventricle. There is Trace to mild tricuspid regurgitation. Right ventricular systolic pressure is normal. MD Sabas Galdamez 12/15/2019 03:44 PM
--- NOTE | 2019-12-15 17:14 | DS ---
Physical Examination Vital Signs: Vital Signs Temperature 97.2 F L 12/15/19 13:35 Pulse Rate 62 12/15/19 13:35 Respiratory Rate 16 12/15/19 13:35 Blood Pressure 113/50 L 12/15/19 13:35 O2 Sat by Pulse Oximetry (%) 95 12/15/19 09:00 Labs: CBC, BMP 12/15/19 06:40 12/15/19 06:40 Discharge Summary Problems reviewed: Yes Reason For Visit: SHORTNESS OF BREATH Current Active Problems History of pulmonary embolism (Acute) Hypothyroidism (Acute) Non-Hodgkin lymphoma in remission (Acute) Premature ventricular contraction (Acute) Prinzmetal variant angina (Acute) Raynaud phenomenon (Acute) Shortness of breath (Acute) Condition: Stable - Instructions Referrals: Tonya Woodruff MD [Primary Care Provider] - James Kearney MD [Staff Physician] - 1 Week Jim Lunsford MD [Non Staff, Medical] - 12/16/19 - Home Medications Comprehensive Discharge Medication List: Ambulatory Orders Dexamethasone 0.1% Eye Drops - 1 drop OS DAILY 12/14/19 Diltiazem HCl [Diltiazem 24Hr ER] 120 mg PO DAILY 12/14/19 Erythromycin 0.5% Eye Ointment [Erythromycin 0.5% Eye Ointment -] 1 applic OS DAILY 12/14/19 Escitalopram Oxalate [Lexapro -] 5 mg PO DAILY 12/14/19 Esomeprazole Magnesium [Nexium 24Hr] 40 mg PO DAILY 12/14/19 Levothyroxine [Synthroid -] 125 mcg PO DAILY 12/14/19 Timolol [Betimol] 1 drop OS BID 12/14/19 Valacyclovir HCl [Valtrex] 500 mg PO BID 12/14/19
[2019-12-15] MEDS ORDERED: FLUTICASONE PROP 0.05% 16 GM NASAL SPRAY NS SCH (22:00)
== END 2019-12-15 18:35 | disposition home or self-care (01) | DRG 204 ==
LOC: JER 10:55 → JERBED 15:37 → OBSVTOIN 15:46 → JERBED 15:46 → J4S 19:05
PROVIDERS: ADMIT Family Medicine; ATTEND Family Medicine
DX: R06.02 Shortness of breath (principal); I20.1 Angina pectoris with documented spasm; I73.00 Raynaud's syndrome without gangrene; I44.0 Atrioventricular block, first degree; K21.9 Gastro-esophageal reflux disease without esophagitis; I49.3 Ventricular premature depolarization; E03.9 Hypothyroidism, unspecified; Z85.72 Personal history of non-Hodgkin lymphomas; Z86.711 Personal history of pulmonary embolism; Z96.652 Presence of left artificial knee joint
CPT/HCPCS: 36415; 71045-TC-FY; 71275-TC; 80053; 80061; 81003; 83721; 83735; 83880; 84436; 84443; 84484; 85025; 85379; 87804; 93005; 93010; 93306-TC; 93970-TC; 99285-25; G0378; J1644; Q9967

== ENCOUNTER 2023-07-31 13:19 | Emergency (ER) | payer BC, OTHER ==
[2023-07-31] MEDS ORDERED: DIPHTH,PERTUSS(ACELL),TET 0.5 ML DISP.SYRIN IM ONE ×2 (13:53→14:03)
[2023-07-31] MEDS ORDERED: ACETAMINOPHEN 325 MG TABLET (FP) PO ONE (13:53)
[2023-07-31 13:59] VITALS: BP 113/70; PULSE 58; RESP 18; TEMP 97.8; BMI 24.3
[2023-07-31] MEDS ORDERED: ACETAMINOPHEN 325 MG TABLET (FP) ONE (14:02)
== END 2023-07-31 16:10 | disposition home or self-care (01) ==
LOC: FER 13:19
PROC: 3E0234Z Introduction of Serum, Toxoid and Vaccine into Muscle, Percutaneous Approach (ICD-10-PCS; principal; 2023-07-31)
DX: S00.83XA Contusion of other part of head, initial encounter (principal); M25.512 Pain in left shoulder; W01.198A Fall on same level from slipping, tripping and stumbling with subsequent striking against other object, initial encounter
CPT/HCPCS: 70450-TC; 72125-TC; 73030-TC-LT-FY; 90471; 90715; 99284-25